=== PATIENT | female | born 1955 | race Caucasian/White ===

== ENCOUNTER 2020-08-14 13:34 | Observation (INO) | payer OTHER ==
[2020-08-14 14:12] VITALS: BMI 34.0
[2020-08-14 15:48] LABS: BASO % 0.5 % (0-2.0); EOS % 1.8 % (0-4.5); HEMATOCRIT 22.2 % (32.4-45.2); HEMOGLOBIN 7.2 GM/dL (10.7-15.3); LYMPH % 11.2 % (8-40); MCH 29.4 pg (25.7-33.7); MCHC 32.3 g/dl (32.0-36.0); MEAN CELL VOLUME 91.1 fl (80-96); MEAN PLT VOLUME 9.3 fl (7.5-11.1); MONO % 6.9 % (3.8-10.2); NEUT % 79.6 % (42.8-82.8); PLATELET COUNT 270 K/MM3 (134-434); RBC 2.43 M/mm3 (3.60-5.2); RDW 15.5 % (11.6-15.6)
[2020-08-14 15:55] LABS: INR 1.46 (0.83-1.09); PROTHROMBIN TIME (PATIENT) 17.8 SEC (9.7-13.0)
[2020-08-14 15:57] LABS: ACTIVATED PTT 34.3 SECONDS (25.2-36.5)
[2020-08-14 16:06] LABS: POTASSIUM 3.6 mmol/L (3.5-5.1)
[2020-08-14 16:08] LABS: ALBUMIN 2.8 g/dl (3.4-5.0); BLOOD UREA NITROGEN 26.1 mg/dL (7-18); CALCIUM 9.1 mg/dL (8.5-10.1)
[2020-08-14 16:12] LABS: BILIRUBIN,TOTAL 0.5 mg/dL (0.2-1); CREATININE 3.5 mg/dL (0.55-1.3); TOT PROT 6.5 g/dl (6.4-8.2)
[2020-08-14] MEDS ORDERED: SODIUM CHLORIDE 250 ML IV PRN (18:57)
[2020-08-14] MEDS: MELATONIN 5 MG TABLETS PO SCH (22:30)
[2020-08-14] MEDS: ATORVASTATIN CA 80 MG TABLET (FP) PO SCH (22:39)
[2020-08-14] MEDS: INSULIN SLIDING SCALE (NOVOLOG) 1 VIAL SQ SCH (22:51)
[2020-08-15] MEDS: INSULIN SLIDING SCALE (NOVOLOG) 1 VIAL SQ SCH ×4 (06:58→21:12)
[2020-08-15 09:10] LABS: BASO % 0.4 % (0-2.0); EOS % 2.4 % (0-4.5); HEMATOCRIT 22.3 % (32.4-45.2); HEMOGLOBIN 7.4 GM/dL (10.7-15.3); LYMPH % 13.2 % (8-40); MCH 28.9 pg (25.7-33.7); MCHC 33.2 g/dl (32.0-36.0); MEAN CELL VOLUME 87.2 fl (80-96); MEAN PLT VOLUME 8.7 fl (7.5-11.1); MONO % 7.8 % (3.8-10.2); NEUT % 76.2 % (42.8-82.8); PLATELET COUNT 251 K/MM3 (134-434); RBC 2.56 M/mm3 (3.60-5.2); RDW 17.4 % (11.6-15.6); WHITE BLOOD COUNT 11.7 K/mm3 (4.0-10.0)
[2020-08-15] MEDS ORDERED: PT OWN MED DRAWER 7, Y5N ONE (09:25)
[2020-08-15 09:46] LABS: POTASSIUM 3.2 mmol/L (3.5-5.1)
[2020-08-15] MEDS ORDERED: ZINC SULFATE 220 MG CAPSULE (FP) PO SCH (10:00)
[2020-08-15] MEDS ORDERED: MELATONIN 5 MG PO SCH (10:00)
[2020-08-15] MEDS ORDERED: GABAPENTIN 300 MG CAPSULE PO SCH (10:00)
[2020-08-15] MEDS ORDERED: ASCORBIC ACID 250 MG TABLET (FP) PO SCH (10:00)
[2020-08-15 10:01] LABS: CALCIUM 8.6 mg/dL (8.5-10.1)
[2020-08-15 10:02] LABS: ALBUMIN 2.5 g/dl (3.4-5.0); BLOOD UREA NITROGEN 30.6 mg/dL (7-18); MAGNESIUM 2.2 mg/dL (1.8-2.4)
[2020-08-15 10:05] LABS: CREATININE 3.7 mg/dL (0.55-1.3); PHOSPHOROUS 3.2 mg/dL (2.5-4.9)
[2020-08-15 10:06] LABS: BILIRUBIN,TOTAL 0.7 mg/dL (0.2-1)
[2020-08-15 10:07] LABS: TOT PROT 5.8 g/dl (6.4-8.2)
[2020-08-15 14:31] VITALS: PULSE 77
[2020-08-15] MEDS ORDERED: INSULIN (NOVOLOG) ASPART 100 UNITS/ML 10ML VIAL ONE (21:04)
[2020-08-15] MEDS: ATORVASTATIN CA 80 MG TABLET (FP) PO SCH (21:12)
[2020-08-15] MEDS: MELATONIN 5 MG TABLETS PO SCH (21:12)
[2020-08-15 21:15] VITALS: BP 143/70; TEMP 98.2
== END 2020-08-15 22:01 ==
LOC: JER 13:34 → JERBED 16:39 → UNDOADMOB 16:39 → INTOOBSV 16:39 → JERBED 21:00 → J7W 21:00 → JERBED 08-15 15:45
PROVIDERS: ADMIT Internal Medicine; ATTEND Student in an Organized Health Care Education/Training Program
PROC: 30233N1 Transfusion of Nonautologous Red Blood Cells into Peripheral Vein, Percutaneous Approach (ICD-10-PCS; principal; 2020-08-15)
PROC: 5A1D70Z Performance of Urinary Filtration, Intermittent, Less than 6 Hours Per Day (ICD-10-PCS; 2020-08-15)
DX: I13.11 Hypertensive heart and chronic kidney disease without heart failure, with stage 5 chronic kidney disease, or end stage renal disease (principal); N18.6 End stage renal disease; E11.22 Type 2 diabetes mellitus with diabetic chronic kidney disease; D64.9 Anemia, unspecified; Z99.2 Dependence on renal dialysis; Z89.511 Acquired absence of right leg below knee
CPT/HCPCS: 36415; 36430; 71045-TC-FY; 76937; 80053; 82962; 83735; 84100; 85025; 85610; 85730; 86803; 86850; 86900; 86901; 86922; 87340; 90935; 93005; 93010; 99285-25; C9803; G0378; P9058; U0003